=== PATIENT | male | born 1970 | race Caucasian/White ===

== ENCOUNTER 2020-12-24 07:42 | Inpatient (IN) | payer OTHER ==
[2020-12-24] MEDS ORDERED: Morphine 4 MG/ML VIAL ONE (08:12)
[2020-12-24] MEDS ORDERED: Ondansetron PF 4 MG/2 ML Vial ONE (08:12)
[2020-12-24 08:41] LABS: Hemoglobin 14.9 g/dL (14.0-18.0); Mean Corpuscular HGB CONC 32.6 g/dL (32.0-36.0); Mean Corpuscular Hemoglobin 30.2 pg (27.0-31.0); Mean Corpuscular Volume 92.7 fL (78.0-98.0); Mean Platelet Volume 8.1 fL (7.4-10.4); Platelet Count 259 thou/uL (130-400); RBC Distribution Width 11.5 % (11.5-14.5); Red Blood Cell (RBC) Count 4.94 mill/uL (4.70-6.10); White Blood Cell (WBC) Count 24.3 thou/uL (4.8-10.8)
[2020-12-24 09:02] LABS: ALT (SGPT) 32 U/L (8-55); AST (SGOT) 19 U/L (5-34); Albumin 4.3 g/dL (3.5-5.0); Alkaline Phosphatase 113 U/L (40-110); BUN (Urea Nitrogen) 26 mg/dL (8.4-25.7); Bilirubin, Total 0.6 mg/dL (0.2-1.2); Calc. Creatinine Clearance 0 mL/min (70-130); Calcium 8.6 mg/dL (7.8-10.44); Chloride 86 mmol/L (98-107); Globulin 3.6 g/dL (2.4-3.5); Lipase 20 U/L (8-78); Magnesium 2.4 mg/dL (1.6-2.6); Phosphorus 3.6 mg/dL (2.3-4.7); Protein, Total 7.9 g/dL (6.0-8.3); Sodium 121 mmol/L (136-145)
[2020-12-24 09:08] LABS: Band 5 % (5-11); Lymphocytes 6 % (21-51); MDiff Complete? YES; Monocytes 3 % (0-10); Neutrophil 86 % (42-75); RBC Morphology Normal
--- NOTE | 2020-12-24 09:10 | RAD ---
Exam: Chest one view HISTORY:Abdominal pain. Comparison: None FINDINGS: Cardiac silhouette: Normal Aorta: Unremarkable Pulmonary vessels: Normal Costophrenic angles: Clear LUNGS: No masses or consolidation. Calcified granuloma in the right lower lobe, measuring 1.1 cm Pneumothorax: None Osseous abnormalities: None IMPRESSION: No acute cardiopulmonary process.
[2020-12-24 09:16] LABS: Carbon Dioxide Less than 8 mmol/L (22-29); Glucose 725 mg/dL (70-105)
[2020-12-24] MEDS ORDERED: INSULIN REGULAR IN 0.9 % NACL 100 UNIT/100 ML BAG ONE (09:41)
[2020-12-24] MEDS ORDERED: Insulin Regular 300 UNITS/3 ML VIAL ONE (09:41)
[2020-12-24] MEDS ORDERED: Sodium Chloride 0.9% 1,000 ML IV PRN ×4 (10:17)
[2020-12-24] MEDS ORDERED: NS 0.9% w/ 20 MEQ KCL 1,000 ML IV PRN ×2 (10:17)
[2020-12-24] MEDS ORDERED: Dextrose 5 %-0.45 % NaCl 1,000 ML IV PRN (10:17)
[2020-12-24] MEDS ORDERED: Electrolyte Replacement Protocol 1 EACH IVPB ONE (10:17)
[2020-12-24 10:27] LABS: Bilirubin Negative (Negative); Blood, Urine Negative (Negative); Clarity Clear (Clear); Glucose, Urine (Dipstick) Greater than 1000 mg/dL (Negative); Ketone, Urine Greater than 150 mg/dL (Negative); Leukocyte Negative Leu/uL (Negative); Nitrite Negative (Negative); Protein, Urine (Dipstick) Negative (Neg-Trace); Specific Gravity, Urine 1.027 (1.002-1.036); Urobilinogen Normal mg/dL (Less than 2)
[2020-12-24] MEDS ORDERED: HUMULIN R 100 UNITS in Sodium Chloride 0.9% 100 ML IVPB SCH (10:30)
--- NOTE | 2020-12-24 10:32 | PDOC.HHP ---
Hospitalist HPI Abdominal pain History of Present Illness: The patient is a 51-year-old male with past medical history of insulin-dependent diabetes mellitus who presented to the hospital with complaints of abdominal pain. The patient underwent a dental surgery a week ago and placed on amoxicillin. He has not been compliant with his Lantus for the past week. He presented to the ER with complaints of severe generalized abdominal pain, nausea, and vomiting. Initial work-up was consistent with DKA. The patient denies fevers or chills. He complains of extreme thirst and asked for water. Past History: PMHx: DM1 PSHx: Dental surgery FHx: Noncontributory for the current presentation Social: Former tobacco smoker, no alcohol or drug use Hospitalist HPI ROS All other systems reviewed; all pertinent +/- noted in HPI/Subj Hospitalist Exam General Appearance: awake alert Eye: PERRL ENT: normocephalic atraumatic Neck: supple Heart: RRR Respiratory: CTAB, no wheezes, no rales Gastrointestinal: soft, tender to palpation Extremities: no cyanosis, no clubbing Neurological: cranial nerve grossly intact, no new deficit Hospitalist Results Result Diagrams: 12/24/20 08:27 12/24/20 08:27 Lab results: Laboratory Last Values WBC 24.3 thou/uL (4.8-10.8) H 12/24/20 08:27 RBC 4.94 mill/uL (4.70-6.10) 12/24/20 08:27 Hgb 14.9 g/dL (14.0-18.0) 12/24/20 08:27 Hct 45.8 % (42.0-52.0) 12/24/20 08:27 MCV 92.7 fL (78.0-98.0) 12/24/20 08:27 MCH 30.2 pg (27.0-31.0) 12/24/20 08:27 MCHC 32.6 g/dL (32.0-36.0) 12/24/20 08:27 RDW 11.5 % (11.5-14.5) 12/24/20 08:27 Plt Count 259 thou/uL (130-400) 12/24/20 08:27 MPV 8.1 fL (7.4-10.4) 12/24/20 08:27 Neutrophils % (Manual) 86 % (42-75) H 12/24/20 08:27 Band Neuts % (Manual) 5 % (5-11) 12/24/20 08:27 Lymphocytes % (Manual) 6 % (21-51) L 12/24/20 08:27 Monocytes % (Manual) 3 % (0-10) 12/24/20 08:27 Lymphocytes # Not Reportable 12/24/20 08:27 RBC Morph Comment Normal 12/24/20 08:27 Sodium 121 mmol/L (136-145) L 12/24/20 08:27 Potassium 6.0 mmol/L (3.5-5.1) H 12/24/20 08:27 Chloride 86 mmol/L (98-107) L 12/24/20 08:27 Carbon Dioxide Less than 8 mmol/L (22-29) L* 12/24/20 08:27 Anion Gap TNP 12/24/20 08:27 BUN 26 mg/dL (8.4-25.7) H 12/24/20 08:27 Creatinine 1.87 mg/dL (0.7-1.3) H 12/24/20 08:27 Estimated GFR (MDRD) 38 12/24/20 08:27 Glucose 725 mg/dL (70-105) H* 12/24/20 08:27 POC Glucose Greater than 530 mg/dL (70-100) H* 12/24/20 07:56 Calcium 8.6 mg/dL (7.8-10.44) 12/24/20 08:27 Phosphorus 3.6 mg/dL (2.3-4.7) 12/24/20 08:27 Magnesium 2.4 mg/dL (1.6-2.6) 12/24/20 08:27 Total Bilirubin 0.6 mg/dL (0.2-1.2) 12/24/20 08:27 AST 19 U/L (5-34) 12/24/20 08:27 ALT 32 U/L (8-55) 12/24/20 08:27 Alkaline Phosphatase 113 U/L (40-110) H 12/24/20 08:27 Troponin I Less than 0.010 ng/mL (< 0.028) 12/24/20 08:27 Serum Total Protein 7.9 g/dL (6.0-8.3) 12/24/20 08:27 Albumin 4.3 g/dL (3.5-5.0) 12/24/20 08:27 Globulin 3.6 g/dL (2.4-3.5) H 12/24/20 08:27 Albumin/Globulin Ratio 1.2 g/dL (1.2-2.2) 12/24/20 08:27 Lipase 20 U/L (8-78) 12/24/20 08:27 Urine Color Colorless (Yellow) 12/24/20 10:00 Urine Clarity Clear (Clear) 12/24/20 10:00 Urine pH 5.0 (5.0-9.0) 12/24/20 10:00 Ur Specific [place] 1.027 (1.002-1.036) 12/24/20 10:00 Urine Protein Negative mg/dL (Neg-Trace) 12/24/20 10:00 Urine Glucose (UA) Greater than 1000 mg/dL (Negative) A 12/24/20 10:00 Urine Ketones Greater than 150 mg/dL (Negative) A 12/24/20 10:00 Urine Blood Negative (Negative) 12/24/20 10:00 Urine Nitrite Negative (Negative) 12/24/20 10:00 Urine Bilirubin Negative (Negative) 12/24/20 10:00 Urine Urobilinogen Normal mg/dL (Less than 2) 12/24/20 10:00 Ur Leukocyte Esterase Negative Lisa/uL (Negative) 12/24/20 10:00 B-Hydroxybutyrate 11.44 mmol/L (0.02-0.27) H 12/24/20 08:27 Hospitalist H&P A/P (1) DKA (diabetic ketoacidoses) Code(s): E11.10 - TYPE 2 DIABETES MELLITUS WITH KETOACIDOSIS WITHOUT COMA Status: Acute (2) Dehydration Code(s): E86.0 - DEHYDRATION Status: Acute (3) History of recent dental procedure Code(s): Z98.890 - OTHER SPECIFIED POSTPROCEDURAL STATES Status: Acute (4) EDER (acute kidney injury) Code(s): N17.9 - ACUTE KIDNEY FAILURE, UNSPECIFIED Status: Acute Plan: The patient will be admitted to the IMCU. He received normal saline bolus in the ER. Initial potassium level elevated. We will start IV insulin drip, IV fluids, and electrolyte replacement per DKA protocol. The fluids will not contain potassium initially until the potassium level is 4 or less. Keep patient n.p.o. except for ice chips until metabolic acidosis resolves. Leukocytosis is likely due to extreme dehydration. However, given his recent dental procedure I will continue to treat him with Augmentin. Acute kidney injury due to dehydration. Continue to follow creatinine level. Lovenox for DVT prophylaxis.
[2020-12-24 11:07] LABS: BUN (Urea Nitrogen) 25 mg/dL (8.4-25.7); Calc. Creatinine Clearance 0 mL/min (70-130); Calcium 8.2 mg/dL (7.8-10.44); Chloride 97 mmol/L (98-107); Glucose 530 mg/dL (70-105); Potassium 4.6 mmol/L (3.5-5.1); Sodium 128 mmol/L (136-145)
[2020-12-24 11:10] LABS: Carbon Dioxide Less than 8 mmol/L (22-29)
[2020-12-24 12:02] LABS: SARS-CoV-2 NAA Rapid Test Not Detected (NotDetected)
[2020-12-24 15:04] LABS: Anion Gap 21 mmol/L (10-20); BUN (Urea Nitrogen) 22 mg/dL (8.4-25.7); Calc. Creatinine Clearance 0 mL/min (70-130); Calcium 7.7 mg/dL (7.8-10.44); Carbon Dioxide 11 mmol/L (22-29); Chloride 102 mmol/L (98-107); Glucose 308 mg/dL (70-105); Potassium 4.5 mmol/L (3.5-5.1); Sodium 129 mmol/L (136-145)
[2020-12-24] MEDS ORDERED: D5 1/2 NS w/20 mEq KCL 1,000 ML ONE ×2 (15:59→19:59)
[2020-12-24] MEDS: D5 1/2 NS w/20 mEq KCL 1,000 ML IV PRN (16:35)
[2020-12-24 19:38] LABS: Chloride 103 mmol/L (98-107); Potassium 4.4 mmol/L (3.5-5.1); Sodium 130 mmol/L (136-145)
[2020-12-24 19:39] LABS: Calcium 7.8 mg/dL (7.8-10.44); Glucose 266 mg/dL (70-105)
[2020-12-24 19:41] LABS: Anion Gap 14 mmol/L (10-20); Carbon Dioxide 17 mmol/L (22-29)
[2020-12-24 19:43] LABS: BUN (Urea Nitrogen) 19 mg/dL (8.4-25.7); Calc. Creatinine Clearance 0 mL/min (70-130)
[2020-12-24 20:06] VITALS: BMI 20.5
[2020-12-24] MEDS ORDERED: Amoxicillin/Potassium Clav 875 MG TAB PO SCH (21:00)
[2020-12-25] MEDS: D5 1/2 NS w/20 mEq KCL 1,000 ML IV PRN (00:40)
[2020-12-25] MEDS ORDERED: Piperacillin/Tazobactam 3.375 GM in Sodium Chloride 0.9% 100 ML IVPB SCH (00:45)
[2020-12-25] MEDS ORDERED: Insulin Glargine 40 UNITS in Pre-Filled Syringe 1 EACH SC SCH (01:00)
[2020-12-25 03:57] LABS: Anion Gap 12 mmol/L (10-20); BUN (Urea Nitrogen) 14 mg/dL (8.4-25.7); Calc. Creatinine Clearance 108 mL/min (70-130); Calcium 7.6 mg/dL (7.8-10.44); Carbon Dioxide 18 mmol/L (22-29); Chloride 101 mmol/L (98-107); Glucose 184 mg/dL (70-105); Potassium 4.1 mmol/L (3.5-5.1); Sodium 127 mmol/L (136-145)
[2020-12-25] MEDS ORDERED: Ondansetron PF 4 MG/2 ML Vial IVP PRN (06:12)
[2020-12-25] MEDS ORDERED: Dextrose 50% Abboject 50 ML SYRINGE IVP PRN (06:15)
[2020-12-25] MEDS ORDERED: Dextrose 5% in Water 1,000 ML IV PRN (06:15)
[2020-12-25] MEDS: Sodium Chloride 0.9% 1,000 ML IV SCH ×2 (06:36→16:23)
[2020-12-25] MEDS: Piperacillin/Tazobactam 3.375 GM in Sodium Chloride 0.9% 100 ML IVPB SCH ×3 (06:36→17:20)
[2020-12-25] MEDS: HumaLOG 300 UNITS/3 ML VIAL SC PRN ×2 (06:43→16:20)
[2020-12-25] MEDS: Enoxaparin Sodium 40 MG/0.4 ML SYRINGE SC SCH (07:59)
[2020-12-25] MEDS ORDERED: FLU VACC QS2020-21(6MOS UP)/PF 60 MCG/0.5 ML SYRINGE IM ONE (09:00)
[2020-12-25] MEDS ORDERED: Prevnar 13-Val Conj/PF 0.5 ML SYRINGE IM ONE (09:00)
[2020-12-25] MEDS: Morphine 2 MG/ML VIAL SLOW IVP PRN ×2 (10:05→15:22)
[2020-12-25 10:48] LABS: #Basophils 0.1 thou/uL (0.0-0.2); #Eosinphils 0.1 thou/uL (0.0-0.7); #Monocytes 1.8 thou/uL (0.11-0.59); #Neutrophils 13.9 thou/uL (1.40-6.50); %Basophils 0.3 % (0.0-1.0); %Eosinophils 0.3 % (0.0-10.0); %Monocytes 9.9 % (0.0-10.0); %Neutrophils 78.5 % (42.0-75.0); Hemoglobin 11.8 g/dL (14.0-18.0); Mean Corpuscular HGB CONC 34.5 g/dL (32.0-36.0); Mean Corpuscular Hemoglobin 30.7 pg (27.0-31.0); Mean Corpuscular Volume 88.8 fL (78.0-98.0); Mean Platelet Volume 7.3 fL (7.4-10.4); Platelet Count 224 thou/uL (130-400); RBC Distribution Width 11.2 % (11.5-14.5); Red Blood Cell (RBC) Count 3.84 mill/uL (4.70-6.10); White Blood Cell (WBC) Count 17.7 thou/uL (4.8-10.8)
--- NOTE | 2020-12-25 16:15 | RAD ---
Right foot 3 views: 12/25/2020 COMPARISON: None HISTORY: Right foot inflammatory change in region of fifth metatarsal phalangeal joint. FINDINGS: There is bandaging material limiting detailed assessment in the region of the fifth metatar stephanie phalangeal joint. There is soft tissue swelling in this region dorsally and laterally. No displaced fracture or evidence of dislocation is apparent. There is questionable mild cortical irregularity at the base of the fifth proximal phalanx which coul d be related to artifact associated with bandaging material or could represent a nondisplaced fracture in the proper clinical setting. IMPRESSION: Soft tissue swelling in the region of the fifth metatarsal phalangeal joint. Possible non displaced fracture versus artifact at the base of the fifth proximal phalanx. If there is concern for osteomyelitis, MRI of the right foot is advised.
--- NOTE | 2020-12-25 16:50 | PDOC.HOSPP ---
- Subjective Encounter Date: 12/25/20 Encounter Time: 10:00 Subjective: tolerating oral diet, no sob or nausea right foot pain to ambulate, had long standing callus which is likely infected now. recent dental implant x4 tooth, was not taking insulin as he was not eating much during those time. - Objective Vital Signs & Weight: Vital Signs (12 hours) Temp Pulse Ox 12/25/20 07:49 97.9 F 12/25/20 07:42 96 Weight Admit Weight 160 lb Weight 160 lb Most Recent Monitor Data Heart Rate from ECG 59 NIBP 108/70 NIBP BP-Mean 82 Respiration from ECG 13 SpO2 97 I&O: 12/24/20 12/25/20 12/26/20 06:59 06:59 06:59 Intake Total 2570 350 Output Total 650 Balance 1920 350 Result Diagrams: 12/25/20 10:19 12/25/20 03:16 Additional Labs: Accuchecks 12/25/20 12/25/20 12/25/20 12:17 08:01 06:35 POC Glucose 176 H 192 H 200 H 12/25/20 12/25/20 12/25/20 04:02 02:57 01:59 POC Glucose 180 H 175 H 183 H 12/25/20 12/24/20 12/24/20 00:57 19:55 17:57 POC Glucose 188 H 236 H 245 H 12/24/20 16:43 POC Glucose 242 H Hospitalist ROS - Medication Medications: Active Medications Generic Name Dose Route Start Last Admin Trade Name Freq PRN Reason Stop Dose Admin Enoxaparin Sodium 40 mg 12/25/20 09:00 12/25/20 07:59 Enoxaparin Sodium 40 Mg/0.4 Ml Syringe SC 40 mg 0900 JEB Administration Piperacillin Sod/Tazobactam 100 mls @ 200 mls/hr 12/25/20 06:00 12/25/20 13:00 Sod 3.375 gm/ Sodium Chloride IVPB 100 mls Q6HR JEB Administration Sodium Chloride 1,000 mls @ 100 mls/hr 12/25/20 06:15 12/25/20 16:23 Normal Saline 0.9% IV 1,000 mls .Q10H JEB Administration Insulin Human Lispro 0 units 12/25/20 06:15 12/25/20 16:20 Humalog 300 Units/3 Ml Vial SC 3 unit .MILD SLIDING SCALE PRN Administration MILD SLIDING SCALE Protocol Morphine Sulfate 2 mg 12/24/20 10:31 12/25/20 15:22 Morphine 2 Mg/Ml Vial SLOW IVP 2 mg Q4H PRN Administration Moderate to Severe Pain (6-10) Sodium Chloride 10 ml 12/25/20 09:00 12/25/20 07:59 Flush - Normal Saline 10 Ml Syringe IVF 10 ml Q12HR JEB Administration Sodium Chloride 10 ml 12/25/20 00:15 12/25/20 02:11 Flush - Normal Saline 10 Ml Syringe IVF 10 ml PRN PRN Administration Saline Flush Hospitalist Exam Vitals: Vital Signs (12 hours) Temp Pulse Ox 12/25/20 07:49 97.9 F 12/25/20 07:42 96 Weight Admit Weight 160 lb Weight 160 lb Most Recent Monitor Data Heart Rate from ECG 59 NIBP 108/70 NIBP BP-Mean 82 Respiration from ECG 13 SpO2 97 General Appearance: NAD, awake alert Eye: PERRL, anicteric sclera ENT: no oropharyngeal lesions, moist mucosa Neck: supple, no JVD Heart: RRR, no murmur Respiratory: no wheezes, no rales Gastrointestinal: soft, non-tender, non-distended, normal bowel sounds Extremities: no cyanosis, no edema Extremities - other findings: right foot callus with blistering and tenderness to touch Neurological: cranial nerve grossly intact, no focal deficits Psychiatric: normal affect, A&O x 3 Hosp A/P (1) right foot callus with infection Status: Acute (2) EDER (acute kidney injury) Code(s): N17.9 - ACUTE KIDNEY FAILURE, UNSPECIFIED Status: Resolved (3) DKA (diabetic ketoacidoses) Code(s): E11.10 - TYPE 2 DIABETES MELLITUS WITH KETOACIDOSIS WITHOUT COMA Status: Resolved Qualifiers: Diabetes mellitus type: type 1 Diabetes mellitus complication detail: without coma Qualified Code(s): E10.10 - Type 1 diabetes mellitus with ketoacidosis without coma (4) Dehydration Code(s): E86.0 - DEHYDRATION Status: Resolved (5) History of recent dental procedure Code(s): Z98.890 - OTHER SPECIFIED POSTPROCEDURAL STATES Status: Acute - Plan is on zosyn, morphine prn surg consultation to see if he needs debridement of right foot callus with possible inf and blistering hemostable dka and dehydration has resolved will start his home dose insulin, sertraline, synthroid.
--- NOTE | 2020-12-25 19:32 | CON ---
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 He is a type 1 diabetic. He has been admitted yesterday to hospitalist service for complaints of abdominal pain. Patient underwent a dental procedure a week ago, placed on amoxicillin. He has complaints of abdominal pain, nausea, and vomiting. Workup revealed DKA. The patient was admitted and treated for that. Noted in his right foot was neuropathic ulcer with cellulitis. X-rays had not been obtained. White count on admission was 24,000 yesterday, 17,000 today. Differential is unremarkable. Glucose 184 on admission. ALLERGIES: NONE. SOCIAL HISTORY: Tobacco, none. Cessation 2 weeks ago, one pack a day prior. Alcohol rarely. MEDICATIONS: At home 1. Insulin. 2. Amoxicillin. 3. Lamictal. 4. Zoloft. 5. Levothyroxine. PAST SURGICAL HISTORY: Oral surgery, otherwise noncontributory. PAST MEDICAL HISTORY: Type 1 diabetes mellitus. REVIEW OF SYSTEMS: Noncontributory. FAMILY HISTORY: Noncontributory. PHYSICAL EXAMINATION: VITAL SIGNS: 6 feet 2 inches, 160 pounds, 20 BMI, 65 heart rate, blood pressure 104/46. LUNGS: Clear to auscultation. CARDIAC: Regular rate and rhythm. No murmur or gallop. ABDOMEN: Soft, nontender. No masses. EXTREMITIES: Unremarkable palpable femoral, popliteal, dorsalis pedis, posterior tibial pulses. Hair on his feet. Right foot reveals poor nail care. His nails are curled down over the end of his toes plantar. They are very long toes 2, 3, 4, and 5. Toe 1 great toe is well care for. The same is true for the left foot. Left foot is normal. Right foot reveals a large neuropathic ulceration plantar lateral overlying beneath the 5th metatarsophalangeal joint. There is cellulitis in the area. There is some granulation tissue, scabbed tissue between the toes that wipes off. Underlying tissues normal except for the deep neuropathic ulcer with blistering of the skin described with underlying purulent material. Note that after informed consent, the neuropathic ulceration callus was debrided sharply removing blister and skin, draining purulent material, sent for culture. There was no underlying sinus or tracking to the bone or deep tissues. ASSESSMENT AND PLAN: 1. Poorly controlled diabetes. 2. Poor foot care. 3. Neuropathic ulceration and callus, right foot. The patient states this developed when he had started running again. He has been wearing work boots for many months and these blisters and foot problems only occurred when he started running again. I advised him local wound care wash the foot with soap and water daily. He needs nail care. I do not have the proper nail cutters to cut his toenails. He will need to see a operator electronic warfare as an outpatient. This is not emergent. Podiatry does not need to be consulted. He will undergo local wound care. He should follow up with a operator electronic warfare as an outpatient. He could check his foot daily. He should avoid running at this time. Wound care will be ordered for wound evaluation. X-rays of the foot obtained for completeness, although I do not suspect underlying process. Note, I will see the patient as needed this hospitalization. Please call if needed. Job ID: [id number]
[2020-12-25] MEDS: Insulin Glargine 20 UNITS in Pre-Filled Syringe 1 EACH SC SCH (20:53)
[2020-12-25] MEDS ORDERED: Non-Formulary Item 1 EACH (Insulin Glargine,Hum.Rec.Anlog [Basaglar Kwikpen U-100] 100 UN SQ SCH (21:00)
[2020-12-26] MEDS: Piperacillin/Tazobactam 3.375 GM in Sodium Chloride 0.9% 100 ML IVPB SCH ×2 (00:15→05:26)
[2020-12-26] MEDS: Levothyroxine Sodium 100 MCG TAB PO SCH (05:26)
[2020-12-26] MEDS: Sodium Chloride 0.9% 1,000 ML IV SCH (05:27)
[2020-12-26 06:33] LABS: Mean Corpuscular HGB CONC 35.1 g/dL (32.0-36.0); Mean Corpuscular Hemoglobin 31.2 pg (27.0-31.0); Mean Corpuscular Volume 88.9 fL (78.0-98.0); Mean Platelet Volume 7.5 fL (7.4-10.4); Platelet Count 224 thou/uL (130-400); RBC Distribution Width 11.2 % (11.5-14.5); Red Blood Cell (RBC) Count 3.86 mill/uL (4.70-6.10); White Blood Cell (WBC) Count 11.7 thou/uL (4.8-10.8)
[2020-12-26 06:35] LABS: Hemoglobin A1c 9.9 % (4.0-6.0)
[2020-12-26 06:59] LABS: Anion Gap 8 mmol/L (10-20); BUN (Urea Nitrogen) 11 mg/dL (8.4-25.7); Band 1 % (5-11); Calc. Creatinine Clearance 115 mL/min (70-130); Calcium 7.6 mg/dL (7.8-10.44); Carbon Dioxide 26 mmol/L (22-29); Chloride 98 mmol/L (98-107); Glucose 130 mg/dL (70-105); Hypochromia SLIGHT = 6-15 cells (100X) (0-5/hpf); Lymphocytes 39 % (21-51); MDiff Complete? YES; Monocytes 14 % (0-10); Neutrophil 46 % (42-75); Platelet Morphology Comment Appears Adequate; Potassium 3.3 mmol/L (3.5-5.1); Sodium 129 mmol/L (136-145)
[2020-12-26] MEDS: Atorvastatin Calcium 40 MG TAB PO SCH (07:59)
[2020-12-26] MEDS: Enoxaparin Sodium 40 MG/0.4 ML SYRINGE SC SCH (07:59)
[2020-12-26] MEDS: Amoxicillin/Potassium Clav 875 MG TAB PO SCH ×2 (07:59→21:52)
[2020-12-26] MEDS: Insulin Glargine 20 UNITS in Pre-Filled Syringe 1 EACH SC SCH ×2 (09:47→22:03)
[2020-12-26] MEDS: Morphine 2 MG/ML VIAL SLOW IVP PRN ×2 (10:32→21:51)
[2020-12-26] MEDS: HumaLOG 300 UNITS/3 ML VIAL SC PRN (13:16)
--- NOTE | 2020-12-26 15:32 | PDOC.HOSPP ---
- Subjective Encounter Date: 12/26/20 Encounter Time: 11:00 Subjective: feels better, no complaints family at bedside - Objective Vital Signs & Weight: Vital Signs (12 hours) Temp Pulse Resp BP Pulse Ox 12/26/20 12:00 97.9 F 63 18 110/50 L 97 12/26/20 08:00 97 12/26/20 07:41 98.4 F 49 L 18 120/77 97 Weight Admit Weight 160 lb Weight 160 lb Most Recent Monitor Data Heart Rate from ECG 59 NIBP 108/70 NIBP BP-Mean 82 Respiration from ECG 13 SpO2 97 I&O: 12/25/20 12/26/20 12/27/20 06:59 06:59 06:59 Intake Total 2570 2590 200 Output Total 650 650 Balance 1920 1940 200 Result Diagrams: 12/26/20 05:40 12/26/20 05:40 Additional Labs: Accuchecks 12/26/20 12/26/20 12/26/20 11:47 05:25 00:17 POC Glucose 233 H 139 H 199 H 12/25/20 20:11 POC Glucose 237 H Hospitalist ROS - Medication Medications: Active Medications Generic Name Dose Route Start Last Admin Trade Name Freq PRN Reason Stop Dose Admin Amoxicillin/Clavulanate Potassium 875 mg 12/26/20 09:00 12/26/20 07:59 Amoxicillin/Potassium Clav 875 Mg Tab PO 875 mg Q12HR JEB Administration Atorvastatin Calcium 40 mg 12/26/20 09:00 12/26/20 07:59 Atorvastatin Calcium 40 Mg Tab PO 40 mg DAILY JEB Administration Enoxaparin Sodium 40 mg 12/25/20 09:00 12/26/20 07:59 Enoxaparin Sodium 40 Mg/0.4 Ml Syringe SC 40 mg 0900 JEB Administration Insulin Glargine 20 units/ 0.2 mls @ 0 mls/hr 12/25/20 21:00 12/26/20 09:47 Miscellaneous Medication SC 0.2 mls BID JEB Administration Insulin Human Lispro 0 units 12/25/20 06:15 12/26/20 13:16 Humalog 300 Units/3 Ml Vial SC 3 unit .MILD SLIDING SCALE PRN Administration MILD SLIDING SCALE Protocol Levothyroxine Sodium 200 mcg 12/26/20 06:00 12/26/20 05:26 Levothyroxine Sodium 100 Mcg Tab PO 200 mcg 0600 JEB Administration Morphine Sulfate 2 mg 12/24/20 10:31 12/26/20 10:32 Morphine 2 Mg/Ml Vial SLOW IVP 2 mg Q4H PRN Administration Moderate to Severe Pain (6-10) Sertraline HCl 100 mg 12/26/20 09:00 12/26/20 07:59 Sertraline Hcl 100 Mg Tab PO 100 mg DAILY JEB Administration Sodium Chloride 10 ml 12/25/20 09:00 12/26/20 07:59 Flush - Normal Saline 10 Ml Syringe IVF 10 ml Q12HR JEB Administration Sodium Chloride 10 ml 12/25/20 00:15 12/25/20 02:11 Flush - Normal Saline 10 Ml Syringe IVF 10 ml PRN PRN Administration Saline Flush Hospitalist Exam Vitals: Vital Signs (12 hours) Temp Pulse Resp BP Pulse Ox 12/26/20 12:00 97.9 F 63 18 110/50 L 97 12/26/20 08:00 97 12/26/20 07:41 98.4 F 49 L 18 120/77 97 Weight Admit Weight 160 lb Weight 160 lb Most Recent Monitor Data Heart Rate from ECG 59 NIBP 108/70 NIBP BP-Mean 82 Respiration from ECG 13 SpO2 97 General Appearance: awake alert Eye: PERRL, anicteric sclera ENT: no oropharyngeal lesions, moist mucosa Neck: supple, no JVD Heart: RRR, no murmur Respiratory: no wheezes, no rales Gastrointestinal: soft, non-tender, non-distended, normal bowel sounds Extremities: no cyanosis, no edema Extremities - other findings: right forefoot in dressing Neurological: cranial nerve grossly intact, no focal deficits Psychiatric: normal affect, A&O x 3 Hosp A/P (1) right foot callus with infection Status: Acute (2) EDER (acute kidney injury) Code(s): N17.9 - ACUTE KIDNEY FAILURE, UNSPECIFIED Status: Resolved (3) DKA (diabetic ketoacidoses) Code(s): E11.10 - TYPE 2 DIABETES MELLITUS WITH KETOACIDOSIS WITHOUT COMA Status: Resolved Qualifiers: Diabetes mellitus type: type 1 Diabetes mellitus complication detail: without coma Qualified Code(s): E10.10 - Type 1 diabetes mellitus with ketoacidosis without coma (4) Dehydration Code(s): E86.0 - DEHYDRATION Status: Resolved (5) History of recent dental procedure Code(s): Z98.890 - OTHER SPECIFIED POSTPROCEDURAL STATES Status: Acute - Plan is on augmentin, morphine prn s/p debridement of right foot callus with blistering 12/25 by . has bleeding around above site and wound care was not able to do dressing changes hemostable dka and dehydration has resolved is on lantus bid, sertraline, synthroid. dc plan in am, will need outpt wound care appointment
--- NOTE | 2020-12-26 17:18 | OP ---
DATE OF PROCEDURE: 12/25/2020 PREOPERATIVE DIAGNOSES: Type 1 diabetes callus neuropathic ulceration, right foot with cellulitis. POSTOPERATIVE DIAGNOSES: Type 1 diabetes callus neuropathic ulceration, right foot with cellulitis. PROCEDURES PERFORMED: Sharp excisional 10 blade resection of diabetic neuropathic ulcer and callus skin only. Culture of underlying purulent process. Process does not extend to the bone or deep tissues. No further surgery is needed. ANESTHESIA: None (neuropathic diabetic foot problem). No palpable pedal pulses. DESCRIPTION OF PROCEDURE: At the patient's bedside in the [facility], his right foot was prepared with alcohol. He had a large callus and blistering skin, which was excised sharply. The skin and callus debrided sharply, excised, and debrided. Purulent material sent for culture and sensitivity. Underlying tissues were intact. There were no deep sinus tracts to the bone. ASSESSMENT AND PLAN: Poor nail care, diabetic callus neuropathic problems, right foot. We would recommend Podiatry followup for nail care as an outpatient. Follow up with Podiatry for foot surveillance. He can follow up with me in the next few weeks if necessary, but would recommend podiatry routine surveillance. Job ID: [id number]
[2020-12-27] MEDS: Levothyroxine Sodium 100 MCG TAB PO SCH (05:48)
[2020-12-27] MEDS: HumaLOG 300 UNITS/3 ML VIAL SC PRN (05:49)
[2020-12-27 07:01] LABS: Anion Gap 9 mmol/L (10-20); BUN (Urea Nitrogen) 12 mg/dL (8.4-25.7); Calc. Creatinine Clearance 134 mL/min (70-130); Calcium 7.9 mg/dL (7.8-10.44); Carbon Dioxide 30 mmol/L (22-29); Chloride 96 mmol/L (98-107); Glucose 159 mg/dL (70-105); Potassium 3.6 mmol/L (3.5-5.1); Sodium 131 mmol/L (136-145)
[2020-12-27] MEDS: Amoxicillin/Potassium Clav 875 MG TAB PO SCH (08:36)
[2020-12-27] MEDS: Enoxaparin Sodium 40 MG/0.4 ML SYRINGE SC SCH (08:36)
[2020-12-27] MEDS: Atorvastatin Calcium 40 MG TAB PO SCH (08:36)
[2020-12-27] MEDS: Insulin Glargine 20 UNITS in Pre-Filled Syringe 1 EACH SC SCH (08:37)
[2020-12-27] MEDS ORDERED: Triple Antibiotic Oint 1 GM Packet TOP SCH (09:00)
[2020-12-27 09:15] LABS: Base Excess-Venous -19.8 mmol/L (-2.0 to 3.0); CO2 Tension (PvCO2) 24.8 mmHg (40.0-50.0); Hemoglobin - Calc 16.4 g/dL (14.0-18.0); Potassium 5.7 mmol/L (3.5-5.1); Sodium 117 mmol/L (138-145); vO2 Saturation-calc 86.2 % (60.0-85.0)
[2020-12-27 09:16] LABS: Calcium, Ionized 0.93 mmol/L (1.15-1.33); Chloride 95 mmol/L (98-107); T. Carbon Dioxide 8.8 mmol/L (22.0-28.0)
--- NOTE | 2020-12-27 09:40 | PQF ---
CLINICAL DOCUMENTATION CLARIFICATION FORM: Dear Dr. JORDEN URIAS Date / Time: 12-27-20 Please exercise your independent, professional judgment in responding to the clarification form. Clinical indicators are provided on the bottom of this form for your review. Please check appropriate box(es): [ ] Hyponatremia please specify etiology, if known [ x] Insignificant Lab Values [ ] Other diagnosis [ ] Unable to determine In addition, please specify: Present on Admission (POA): [ ] Yes [ ] No [ ] Unable to determine For continuity of documentation, please document condition throughout progress notes and discharge summary. Thank You. To be completed by CDI/Coding staff for physician review: CLINICAL INDICATORS - SIGNS / SYMPTOMS / LABS / RESULTS AND LOCATION IN EMR: SODIUM: 12-24-20: 121, 128, 129, 130 12-25-20: 127 12-26-20: 129 12-27-20: 131 ER DX 12-24-20: DKA RISK FACTORS / RESULTS AND LOCATION IN EMR: H&P 12-24-20: DKA, EDER, DEHYDRATION ; HE COMPLAINS OF EXTREME THIRST AND ASKED FOR WATER TREATMENTS / RESULTS AND LOCATION IN EMR: H&P 12-24-20: HE RECEIVED NORMAL SALINE BOLUS IN THE ER, ELECTROLYTE REPLACEMENT PER DKA PROTOCOL SERIES OF LABS 12-24-20 TO 12-27-20 CDS Signature: Mee Barrios Phone #: [phone] Date: 12-27-20 This is a permanent part of the Medical Record [facility]
[2020-12-27 13:14] VITALS: BP 121/69; TEMP 97.5
--- NOTE | 2020-12-27 14:01 | PRG ---
DATE OF SERVICE: 12/27/2020 Mr. Ruiz is doing well. His vital signs are stable, afebrile. Cultures obtained while debriding his foot, ID pending from 12/25/2020. Few gram-negative rods, Gram-positive rods noted. Removing his dressing today reveals that there is no cellulitis, the wound is superficial. I would recommend washing with soap and water daily in the shower or bathtub. He can be discharged home on oral antibiotics for a short course, 5 to 7 days. He should wash the foot with soap and water everyday and apply antibiotic ointment, Telfa or Band-Aid. He can follow up in my office in 2 to 3 weeks or he can see Podiatry. He does need nail care. Job ID: [id number]
--- NOTE | 2020-12-27 16:54 | DIS ---
DATE OF ADMISSION: 12/24/2020 DATE OF DISCHARGE: 12/27/2020 DISCHARGE DISPOSITION: To home. PRIMARY DISCHARGE DIAGNOSIS: DKA, resolved; right foot callus with superficial infection, resolved with debridement; acute kidney injury with severe dehydration on arrival, resolved; history of recent dental implant procedure for four of his tooth, stable. PROCEDURES DONE DURING HOSPITALIZATION: Chest x-ray done on the day of admission showed no acute abnormality. Right foot three-view standard x-ray done shows soft tissue swelling in the region of the 5th metatarsophalangeal joint. The patient had a sharp excisional resection of diabetic neuropathic ulcer and callus, this process did not extend to the bone or deep tissues. Right foot wound culture grew mixed skin yue. Discharge hemoglobin and hematocrit are 12 and 34, platelet count 224, had a white count of 24 on the day of admission due to severe dehydration. Venous blood gas, pH of 7.1, pCO2 of 24, bicarb of 8 on the day of admission. Discharge BUN and creatinine are 12 and 0.6. Admitting serum glucose was 725 with bicarb less than 8 on the day of admission, sodium 121, BUN 26, creatinine 1.87 on the day of admission. Beta-hydroxybutyrate was 11.4. COVID-19 PCR was not detected on 12/24/2020. HbA1c was 9.9. DISCHARGE MEDICATIONS: 1. Lantus 20 units subcu twice daily. 2. Humalog sliding scale before meals. 3. Augmentin 875 mg p.o. twice daily for 5 days. 4. Zoloft 100 mg p.o. daily. 5. Lamictal 25 mg p.o. daily as before. 6. Levothyroxine 200 mcg p.o. daily. 7. Atorvastatin 40 mg p.o. daily. ALLERGIES: NO KNOWN DRUG ALLERGIES. DISCHARGE PLAN: The patient to follow up with instrumental music teacher of his choice in 1 week. He needs to follow up with Dr. Moreno as advised and primary care physician in 1 week. BRIEF COURSE DURING HOSPITALIZATION: The patient initially got admitted on the with complaints of abdominal pain. He was found to be in DKA with severe acidosis along with severe dehydration and acute kidney injury. The patient was fluid resuscitated along with IV insulin and DKA protocol was followed. He was admitted to ICU and later downgraded to medical floor. He has had recent dental procedure for dental implant done and was not taking Lantus insulin for at least a week or so as he was not eating much. He is a known type 1 diabetic. His electrolytes have all stabilized. The patient is tolerating oral solid diet at the time of discharge. He had a callus over the right foot with blistering. This has been debrided by Dr. Moreno. He needs to continue Augmentin for another 5 days. He needs to follow up with his dentist as before and the patient also needs to have outpatient appointment with instrumental music teacher for good control of his diabetes. For now, he needs to continue Lantus 20 units twice daily and Humalog sliding scale before meals. He was counseled with regard to medication compliance, dietary compliance, and fingerstick glucose recordings for at least 10 days to follow up with instrumental music teacher or his primary care physician in the interim. He is hemodynamically stable and will be shortly discharged home. The patient has been advised to avoid weightbearing on his right foot until the wound heals. He needs to follow wound care instructions per Dr. Moreno. He is hemodynamically stable and will be shortly discharged home. Please note, I have seen and examined the patient on the day of discharge. Job ID: [id number]
== END 2020-12-27 13:26 | disposition home or self-care (01) | DRG 638 ==
LOC: ERS 07:42 → ERHOLD 09:56 → CCU 23:52 → T4-A 12-25 15:46
PROVIDERS: ADMIT Internal Medicine; ATTEND Internal Medicine
PROC: 0HBMXZZ Excision of Right Foot Skin, External Approach (ICD-10-PCS; principal; 2020-12-25)
DX: E10.10 Type 1 diabetes mellitus with ketoacidosis without coma (principal); N17.9 Acute kidney failure, unspecified; Z20.822 Contact with and (suspected) exposure to COVID-19; L84 Corns and callosities; L97.519 Non-pressure chronic ulcer of other part of right foot with unspecified severity; E10.40 Type 1 diabetes mellitus with diabetic neuropathy, unspecified; E10.621 Type 1 diabetes mellitus with foot ulcer; Z28.21 Immunization not carried out because of patient refusal; Z79.899 Other long term (current) drug therapy; Z79.4 Long term (current) use of insulin; Z79.890 Hormone replacement therapy
CPT/HCPCS: 0240U; 36415; 36416; 71045; 80048; 80053; 81003; 82010; 82330; 82803; 83036; 83690; 83735; 84100; 84484; 85014; 85025; 87070; 87205; 93005; 94760; 96365; 96375; 96376; J1650; J1815; J2270; J2405; J2543; J3480; J3490